=== PATIENT | male | born 1985 | race Caucasian/White ===

== ENCOUNTER 2021-03-11 09:54 | Outpatient (REF) | payer BC, SELFPAY ==
[2021-03-11 12:33] LABS: Influenza A PCR NEGATIVE (Negative); Influenza B PCR NEGATIVE (Negative); Resp Syncy Virus RNA Qual PCR NEGATIVE (Negative); SARS COV2 PCR INHOUSE NEGATIVE (Negative)
== END 2021-03-11 09:55 | disposition home or self-care (01) ==
LOC: HO.LAB 09:54
PROVIDERS: Visit Provider Hospitalist
DX: R68.89 Other general symptoms and signs (principal); Z20.822 Contact with and (suspected) exposure to COVID-19
CPT/HCPCS: 0241U